=== PATIENT | male | born 1935 | race Caucasian/White ===

== ENCOUNTER 2019-05-29 14:00 | Outpatient (RCR) | payer MEDICARE, OTHER, SELFPAY ==
[2019-01-16 15:51] VITALS: BP 112/60; BP 116/60; RESP 14; O2SAT 95; BMI 32.4
--- NOTE | 2019-01-16 16:11 | PR.IEVALNOTE ---
Current Diagnoses Chronic obstructive pulmonary disease, unspecified (01/16/19) Provider Team Visit Care Team Role Provider Type Doctor MD Frank Non-Staff Specialty: Medical Address: Phone: Fax: Email: Evangelista Cottrell MD Attending Provider Non-Staff Specialty: Medical Address: [address] [place] [address], [phone] Fax: Email: Pulmonary Rehab Initial Evaluation [place] Pulmonary Rehab Inital Assessment Start: 12/09/18 15:21 Freq: Status: Active Protocol: Document 12/09/18 15:25 [facility] (Rec: 12/09/18 15:27 [facility] [id number]) DC Exercise Assessment Dx: COPD Comment Moderate severe COPD, 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 Volume/Forced Vital Cap 60% Ratio (FEV1/FVC Ratio) Forced Expiratory Volume in 1 sec. 1.43 45% Document 01/16/19 15:51 [facility] (Rec: 01/16/19 16:11 [facility] [id number]) DC Exercise Assessment Dx: COPD Comment paralyzed left hemidiaphragm, a-fib Primary Language [employer] Required No Hearing Ability Normal Visual Impairment No Limitations Visual Difficutly None Body Alignment Posture Good Posture Relaxed Assistive Devices None Comment deconditioned no regular exercise DC Vital Signs Pulse Oximetry (91-100 %) 95 Nasal Cannula No Respiratory Rate (12-24 breaths/min) 14 Respiratory Effort Non-Labored Respiratory Depth Normal Assessment diminished breath sounds left base, right clear with slight crackles at base Right Arm Blood Pressure (90/60-140/90 mmHg) 112/60 Blood Pressure Method Manual Cuff/Auscultation Blood Pressure Position Sitting Left Arm Blood Pressure (90/60-140/90 mmHg) 116/60 Blood Pressure Method Manual Cuff/Auscultation Blood Pressure Position Sitting Bilateral Ankle Comment +1 edema DC Six Minute Walk Test Oxygen Delivery Method Room Air Respiratory Rate (breaths/min) 16 Pulse Rate (beats/min) 86 O2 Saturation by Pulse Oximetry (%) 95 Pulse Rate (beats/min) 88 Ambulation Distance (feet) 150 O2 Saturation by Pulse Oximetry (%) 95 Pulse Rate (beats/min) 100 Ambulation Distance (feet) 150 O2 Saturation by Pulse Oximetry (%) 92 Pulse Rate (beats/min) 94 Ambulatory Distance (feet) 150 O2 Saturation by Pulse Oximetry (%) 92 Pulse Rate (beats/min) 89 Ambulation Distance (feet) 100 O2 Saturation by Pulse Oximetry (%) 95 Pulse Rate (beats/min) 89 Ambulation Distance (feet) 150 O2 Saturation by Pulse Oximetry (%) 94 PUlse Rate (beats/min) 105 Ambulation Distance (feet) 180 O2 Saturation by Pulse Oximetry (%) 94 Respiratory Rate (breaths/min) 14 Pulse Rate (beats/min) 85 O2 Saturation by Pulse Oximetry (%) 96 Activity Tolerance Fair Adverse Reactions Increased Shortness of Breath Distance 780 ft Wally RPE Scale 13 Oriented to RPE Scale Yes Dyspnea 3.5 Oriented to Dyspnea Scale Yes DC Exercise Goals Exercise Goals exercise training performance progression will result from increases in time, intensity and frequency. Initial emphasis will be on increasing time DASI Number and Comment 5.04 DC Pulmonary Rehab Orientation Complete Complete Yes DC Nutrition Assessment PFT Date 07/18/18 Forced Vital Capacity (FVC) 2.37 55% Forced Exp. Volume/Forced Vital Cap 60% Ratio (FEV1/FVC Ratio) Forced Expiratory Volume in 1 sec. 1.43 45% Diffusing Capacity of the Lung (DLCO) 20.9 Admit Height 177.8 cm Admit Weight 102.512 kg Admit Body Mass Index (BMI) 32.4 DC Education Pre-Test Score 79 Tobacco Use N/A Use Yes Type wine Amount 6-8 oz Frequency daily Concerns None Education Topics Breathing Retraining Discussed Education Requirements on Yes Intake DC Psychosocial Initial Assess HADS Score 6 HADS Score 1 Marital Status Referral Needed No Physician Comment Ready for Pulmonary Rehabilitation Cooperative Motivated
--- NOTE | 2019-02-13 13:45 | PR.REVALNOTE ---
Current Diagnoses Chronic obstructive pulmonary disease, unspecified (02/13/19) Provider Team Visit Care Team Role Provider Type Doctor MD Frank Non-Staff Specialty: Medical Address: Phone: Fax: Email: Evangelista Cottrell MD Attending Provider Non-Staff Specialty: Medical Address: [address] [place] [address], [phone] Fax: Email: Pulmonary Rehab Re-Evaluation [place] Pulmonary Rehab. Re-Assessment Start: 12/09/18 15:21 Freq: Status: Active Protocol: Document 02/13/19 13:40 [facility] (Rec: 02/13/19 13:44 [facility] [id number]) ME Exercise Re-Assessment New Session Number 1-10 Type Nustep Treadmill METs (resistance level) 2.38 NS 2.35 TM % Improvement 10%NS 24%TM Interval Training No Shortness of Breath with Exercise Yes Desaturation with Exercise No Free Weight Yes: 4# 12R 2S Band Level Yes: #4 ME Education Re-Assessment Topics Normal Anatomy and Physiology Irritant Avoidance/Prevention of Respiratory Infections Coping with Chronic Lung Disease Goals Pt will Master PLB and Diaphragmatic Breathing Pt will Master Energy Conserving Techniques Pt will learn exercise safety Pt will continue ED topics until completion ME Psychosocial Re-Assessment Patient in Class Regularly Yes Interventions Pt attending class regularly Goals Participate in social and educational discussion Received emotional support from family/friends Additional Comment Patient lives on [facility] participates 2X week
--- NOTE | 2019-05-08 14:55 | PR.REVALNOTE ---
Current Diagnoses Chronic obstructive pulmonary disease, unspecified (05/08/19) Visit Care Team Role Provider Type Doctor MD Frank Non-Staff Specialty: Medical Address: Phone: Fax: Email: Evangelista Cottrell MD Attending Provider Non-Staff Specialty: Medical Address: [address] [place] [address], [phone] Fax: Email: Pulmonary Rehab Re-Evaluation NM Education Start: 12/09/18 15:21 Freq: Status: Active Protocol: Document 03/24/19 11:17 [facility] (Rec: 03/24/19 11:18 [facility] [id number]) NM Education Education Pt did not attend Education today but was given the Handouts on the subject matter ,Labels/Sugars and Salts. NM Pulmonary Rehab. Re-Assessment Start: 12/09/18 15:21 Freq: Status: Active Protocol: Document 02/13/19 13:40 [facility] (Rec: 02/13/19 13:44 [facility] [id number]) NM Exercise Re-Assessment New Session Number 1-10 Type Nustep,Treadmill METs (resistance level) 2.38 NS 2.35 TM % Improvement 10%NS 24%TM Interval Training No Shortness of Breath with Exercise Yes Desaturation with Exercise No Free Weight Yes: 4# 12R 2S Band Level Yes: #4 NM Education Re-Assessment Topics Normal Anatomy and Physiology, Irritant Avoidance/Prevention of Respiratory Infections, Coping with Chronic Lung Disease Goals Pt will Master PLB and Diaphragmatic Breating,Pt will Master Energy Conserving Techniques,Pt will learn exercise safety,Pt will continue ED topics until completion NM Psychosocial Re-Assessment Patient in Class Regularly Yes Interventions Pt attending class regularly Goals Participate in social and educational discussion, Received emotional support from family/friends Additional Comment Patient lives on [facility] participates 2X week Document 04/10/19 16:12 [facility] (Rec: 04/10/19 16:12 [facility] [id number]) NM Exercise Re-Assessment New Session Number 12-24 Document 05/08/19 14:40 [facility] (Rec: 05/08/19 14:55 [facility] [id number]) NM Exercise Re-Assessment New Session Number 20-30 Type Nustep,Treadmill METs (resistance level) 4.56 NS 3.79 TM Interval Training Yes: 5.84 METS TM Shortness of Breath with Exercise Yes Desaturation with Exercise No Free Weight Yes: 4# 12R 2S Band Level #4 NM Nutrition Re-Assessment Patient Discussion Yes NM Education Re-Assessment Topics Normal Anatomy and Physiology, Description and Interpretation Medical Tests,Breathing Retraining,Bronchial Hygiene, Medication,Benefits of Exercise,Eating Right,Irritant Avoidance/Prevention of Respiratory Infections,Coping with Chronic Lung Disease Goals Pt will Master PLB and Diaphragmatic Breathing,Pt will Master Energy Conserving Techniques,Pt will learn exercise safety,Pt will continue ED topics until completion Additonal Comments PT is a candidate for Diaphragm Plication but needs to lose weight for surgical consideration NM Psychosocial Re-Assessment Patient in Class Regularly Yes Interventions Pt attending class regularly Goals Participate in social and educational discussion, Received emotional support from family/friends
--- NOTE | 2019-05-29 16:13 | PR.DCNOTE ---
Current Diagnoses Chronic obstructive pulmonary disease, unspecified (05/29/19) Visit Care Team Role Provider Type Doctor MD Frank Non-Staff Specialty: Medical Address: Phone: Fax: Email: Evangelista Cottrell MD Attending Provider Non-Staff Specialty: Medical Address: [address] [place] [address], [phone] Fax: Email: Pulmonary Rehab Discharge Evaluation [place] Education Start: 12/09/18 15:21 Freq: Status: Active Protocol: Document 03/24/19 11:17 [facility] (Rec: 03/24/19 11:18 [facility] [id number]) [place] Education Education Pt did not attend Education today but was given the Handouts on the subject matter ,Labels/Sugars and Salts. [place] Pulmonary Rehab. DC Assessment Start: 12/09/18 15:21 Freq: Status: Active Protocol: Document 05/29/19 15:58 [facility] (Rec: 05/29/19 16:12 [facility] [id number]) [place] Exercise Discharge Assess Session 1 Type Nustep,Treadmill METs (resistance level) 5.14NS 4.58TM % Improvement 26%NS 20%TM Interval Training Yes Shortness of Breath with Exercise Yes: PT reports faster recovery time Desaturation with Exercise No Free Weight Yes: 3# 12r 2s Band Level Yes: #4 Intervention PT supplied with exercise handouts and resistance band and exercise prescription with daily workout schedule [place] Nutrition DC Assessment Weight 101.151 kg Weight Goal Met No: discussed benefits of weight loss to lung function Goals Pt will continue focusing on weight loss,Pt will continue to learn tips Patient Ready Yes Reason Completed Max Sessions [place] Psychosocial DC Assessment HADS Depression Score 3 HADS Anxiety Score 1 Health Club/Other Yes Referral Needed No Goals patient's stated goal of being able to walk [place] without dyspnea or stopping achieved [place] Six Minute Walk Test Oxygen Delivery Method Room Air Respiratory Rate (breaths/min) 14 Pulse Rate (beats/min) 98 O2 Saturation by Pulse Oximetry (%) 95 Pulse Rate (beats/min) 98 Ambulation Distance (feet) 200 O2 Saturation by Pulse Oximetry (%) 94 Pulse Rate (beats/min) 100 Ambulation Distance (feet) 250 O2 Saturation by Pulse Oximetry (%) 94 Pulse Rate (beats/min) 101 Ambulatory Distance (feet) 150 O2 Saturation by Pulse Oximetry (%) 94 Pulse Rate (beats/min) 108 Ambulation Distance (feet) 200 O2 Saturation by Pulse Oximetry (%) 88 Pulse Rate (beats/min) 110 Ambulation Distance (feet) 250 O2 Saturation by Pulse Oximetry (%) 90 PUlse Rate (beats/min) 114 Ambulation Distance (feet) 250 O2 Saturation by Pulse Oximetry (%) 90 Respiratory Rate (breaths/min) 16 Pulse Rate (beats/min) 91 O2 Saturation by Pulse Oximetry (%) 96 Activity Tolerance Good Adverse Reactions Increased Shortness of Breath Wally RPE Scale 12 Oriented to RPE Scale Yes Dyspnea 3.5 Oriented to Dyspnea Scale Yes
== END 2019-06-05 10:37 ==
LOC: PUL 14:00
PROVIDERS: Visit Provider Internal Medicine Pulmonary Disease
DX: J44.9 Chronic obstructive pulmonary disease, unspecified (principal)
CPT/HCPCS: G0424